=== PATIENT | female | born 1995 | race Caucasian/White ===

== ENCOUNTER 2016-11-02 17:23 | Emergency (ER) | payer BC ==
[~2016-11-02] VITALS: Ht 152.4 cm; Wt 48.8 kg
[2016-11-02 17:26] VITALS: BP 105/76; TEMP 98.1
[2016-11-02] MEDS ORDERED: OCELLA 3 MG-0.01 TAB PO (17:29)
[2016-11-02 18:57] VITALS: PULSE 84
== END 2016-11-02 18:58 | disposition home or self-care (01) ==
LOC: COL.ER 17:23
DX: S93.601A Unspecified sprain of right foot, initial encounter (principal); V00.131A Fall from skateboard, initial encounter

== ENCOUNTER → 2018-06-10 | Outpatient (CLI) | payer BC ==
[~2018-06-10] MED LIST: OCELLA 3 MG-0.01 TAB PO
== END ==
LOC: COL.LAB 16:09
DX: O28.8 Other abnormal findings on antenatal screening of mother (principal); Z3A.12 12 weeks gestation of pregnancy; R76.8 Other specified abnormal immunological findings in serum